=== PATIENT | male | born 1990 | race Caucasian/White ===

== ENCOUNTER 2018-04-08 22:51 | Emergency (ER) | payer SELFPAY ==
[2018-04-08 22:52] VITALS: BP 112/76; PULSE 84; RESP 13; TEMP 36.8; O2SAT 100; BMI 19.6
--- NOTE | 2018-04-08 23:00 | EKG12_ITS ---
Test Reason : CP Blood Pressure : / mmHG Vent. Rate : 070 BPM Atrial Rate : 070 BPM P-R Int : 144 ms QRS Dur : 094 ms QT Int : 376 ms P-R-T Axes : 065 081 064 degrees QTc Int : 406 ms Normal sinus rhythm Normal ECG Confirmed by GAUTAM KRAUSE, THOM ([id number]), online editor SVEN MELGAR ([id number] on 04/09/2018 2:59:57 PM Referred By: LONNIE Confirmed By:TOHM FLOREZ MD
--- NOTE | 2018-04-08 23:59 | ED.DCSUM_ITS ---
- ER Visit Summary Date of Service: 04/08/18 Chief Complaint: Anterior chest pain History of Present Illness: The patient is a 27 M who presents with anterior chest pain that is worse with movement of his arms and torso. He has been working on a vehicle and presents because of pain. He has not taken anything or done anything for the pain. He is a non-smoker. He has no URI symptoms. There is no history of direct trauma. Physical Examination: Vital signs noted. He has reproducible pain over the sternum. Movement of his arms causes him pain. Twisting causes him pain. There is no evidence of trauma. Lungs are clear to auscultation. Heart is regular without murmur, gallop or rub Test Results: None are indicated Emergency Department Course and Treatment: He states he has Naprosyn at home and will take first dose of Naprosyn when he gets home Treatment Plan: Symptomatic treatment Disposition: Discharged home with appropriate home-going instructions Impression: Anterior chest wall strain, muscle This note was generated with Digital [employer] dictation software. It may contain incorrect words, spelling, and punctuation that were not noted in review of the chart prior to signing The hospital ED Disposition - Plan for ED Patient: Disposition: Home or Assisted Living Chief Complaint: Chest Pain Instructions: ED Strain Chest Wall Ch Referrals: NOT,DEFINED [Primary Care Provider] - Additional Instructions: Take 2 Advil, naproxen every 12 hours for the next 3-5 days. Apply ice 6-8 times a day. Heat will make the pain worse.
[2018-04-09 00:18] VITALS: BP 108/80; PULSE 69; RESP 19; O2SAT 99
== END 2018-04-09 00:22 | disposition home or self-care (01) ==
LOC: ED 04-09 00:04
PROVIDERS: Emergency Provider Emergency Medicine
DX: S29.011A Strain of muscle and tendon of front wall of thorax, initial encounter (principal); X58.XXXA Exposure to other specified factors, initial encounter; Y93.89 Activity, other specified; Y92.89 Other specified places as the place of occurrence of the external cause; Y99.8 Other external cause status
CPT/HCPCS: 93005; 99283

== ENCOUNTER 2025-03-17 15:24 | Emergency (ER) | payer MEDICAID, SELFPAY ==
[2025-03-17 15:25] VITALS: BP 102/67; PULSE 104; RESP 16; TEMP 36.6; O2SAT 98; BMI 20.9
--- NOTE | 2025-03-17 15:47 | US_ITS ---
PROCEDURE: TESTICULAR WITH ARTERIAL FLOW 03/17/2025 REASON FOR EXAM: PAIN/SWELLING LEFT SCROTUM TECHNIQUE: Procedure Code: USTES Modality: US Procedure: TESTICULAR WITH ARTERIAL FLOW COMPARISON: None. FINDINGS: RIGHT testicle: 4.2 x 2.3 x 2.6 cm. Normal in echogenicity and vascularity. Right epididymis: Normal size and vascularity with the head measures 0.8 x 0.9 x 0.9 cm. An epididymal cyst measures 0.5 x 0.4 x 0.4 cm. No hydrocele. No varicocele. LEFT testicle: 3.9 x 2.8 x 2.2 cm. Normal in echogenicity and vascularity. Left epididymis: Normal in size and vascularity measures 1.1 x 0.9 x 0.8 cm. An epididymal cyst is seen measures 0.5 x 0.7 x 0.6 cm. No hydrocele. No varicocele. US/Testicular with Arterial Flow IMPRESSION: Unremarkable ultrasound of the scrotum with no acute process. No infection. N o torsion. Bilateral simple epididymal cysts as measured. Reading Location: [facility]
--- NOTE | 2025-03-17 15:48 | EX.ED.GUMALE ---
HPI History of Present Illness Chief Complaint: Male Pain/Injury Informant: patient and spouse/S.O. Narrative Narrative: 34-year-old male has had 1 to 2 days of left testicular pain swelling redness. He states yesterday he had a little bit of brown urethral discharge when he went to urinate but that did not happen again and he has noticed no urinary symptoms otherwise. No abdominal pain, back pain, bulge/hernia, or fevers/systemic symptoms. He denies any history of or suspicion of an STI. [facility] Medical History (Updated 03/17/25 @ 17:[address] Doc Cordova MD) GERD (gastroesophageal reflux disease) Medical History no medical history no medical history Home Medications ?Medication ?Instructions ?Recorded ?Last Taken ?Type cephalexin 500 mg capsule 500 mg PO Q6 #40 CAPSULES 03/17/25 Unknown Rx Allergy/AdvReac Type Severity Reaction Status Date / Time No Known Allergies Allergy Verified 03/17/25 15:24 Surgical History (Updated 03/17/25 @ 16:29 by Chris Cook) S/P ORIF (open reduction internal fixation) fracture Social History Smoking Status: Never smoker ROS ROS ED Constitutional Constitutional ED: Denies chills or fever(s) Gastrointestinal Gastrointestinal: Denies abdominal pain, diarrhea, nausea or vomiting Genitourinary Genitourinary ED: Reports scrotal pain, scrotal swelling, testicular swelling and other Details: one episode of brown discharge ; Denies dysuria, hematuria, urinary frequency or vaginal bleeding Musculoskeletal Musculoskeletal: Denies back pain or neck pain Integumentary Denies abscess or rash Neurologic Neurologic: Denies headache(s), paresthesias or weakness EXAM Physical Exam Const Vital Signs: 03/17/25 15:25 Temperature 97.8 F Temperature Source Temporal Pulse Rate 104 H Respiratory Rate 16 Blood Pressure 102/67 Blood Pressure Mean 78 Pulse Ox 98 Oxygen Delivery Method Room Air Testes: testicular swelling MDM MDM MDM Narrative Medical decision making narrative: I obtained a urinalysis, GC and chlamydia which is pending and will not likely return while patient is still here, as well as an ultrasound of the scrotum. I reviewed the images and the report which I agree with. It is essentially normal. His scrotum is certainly red, tender, and swollen on the left, but the epididymis and testicle are both normal appearing with normal blood flow and they are not enlarged compared with the contralateral side. Therefore I think reasonable with the discharge to treat him empirically for GC and chlamydia but to also treat him for possible cellulitis of the scrotum. There is no evidence of Kamran's gangrene here and he is not a diabetic. Discussed following up with urology if he does not get better. Lab Data Attestation: I reviewed the patient's lab results. Labs: Laboratory Results - last 24 hr 03/17/25 16:00 Urine Color Yellow Urine Clarity Clear Urine pH 7.0 Ur Specific [place] 1.010 Urine Protein 30 H Urine Glucose (UA) Normal Urine Ketones Negative Urine Occult Blood Negative Urine Nitrite Negative Urine Bilirubin Negative Urine Urobilinogen 1 H Ur Leukocyte Esterase 25 H Radiography Diagnostic Testing: Clinical Impression(s) from Imaging Studies Testicular Ultrasound 03/17/25 15:47 IMPRESSION: Unremarkable ultrasound of the scrotum with no acute process. No infection. No torsion. Bilateral simple epididymal cysts as measured. Reading Location: [facility] Discharge Plan Triage Chief Complaint: Male Pain/Injury ED Provider: Doc Cordova Dx/Rx/DC Orders Clinical Impression: Cellulitis of scrotum, Urethral discharge Instructions: ED Cellulitis Prescriptions: New cephalexin 500 mg capsule 500 mg PO Q6 Qty: 40 0RF Primary Care Provider: Malina Gray Referrals: Landen Arevalo MD [Med Staff - Active Staff] - 3-5 Days if not improving Print Language: [place]i Disposition Disposition: Home, Self Care
[2025-03-17 16:06] LABS: Mucous, Urine 0 SEEN /hpf (<or=2+)
[2025-03-17 16:09] LABS: Color, Urine Yellow (Yellow); Glucose, Dipstick Normal (Normal); Ketone-Dipstick Negative (Negative); Leukocyte Esterase-Dipstick 25 /ul (Negative); Nitrite-Dipstick Negative (Negative); Occult Blood-Urine Negative /ul (Negative); Protein-Dipstick 30 mg/dl (Negative); Specific Gravity, Urine 1.010 (1.002-1.030); Urine Bilirubin Dipstick Negative (Negative)
[2025-03-17 17:44] LABS: Red Blood Cells-Urine 0-5 SEEN /hpf (0-5); Squamous Epithelial Cells - UA 5-10 SEEN /hpf (0-5)
== END 2025-03-17 18:08 | disposition home or self-care (01) ==
PROVIDERS: Emergency Provider Emergency Medicine; PCP Internal Medicine; Visit Provider Emergency Medicine
DX: N49.2 Inflammatory disorders of scrotum (principal); R36.9 Urethral discharge, unspecified; K21.9 Gastro-esophageal reflux disease without esophagitis
CPT/HCPCS: 76870; 81001; 87491; 87591; 93976; 99283